=== PATIENT | male | born 1975 | race Caucasian/White ===

== ENCOUNTER 2022-04-16 19:49 | Emergency (ER) | payer BC ==
[2022-04-16 20:25] VITALS: O2SAT 98
[2022-04-16] MEDS ORDERED: TORAdol 30 mg Injection IM ONE (20:33)
[2022-04-16] MEDS ORDERED: TORAdol 30 mg Injection ONE (20:40)
[2022-04-16 21:07] LABS: Appearance CLEAR (CLEAR); Bilirubin NEGATIVE (NEGATIVE); Dipstick done @ ? MAIN LAB; Glucose NEGATIVE (NEGATIVE); Ketones NEGATIVE (NEGATIVE); Nitrite NEGATIVE (NEGATIVE); Ph 8.5 (5-6); Protein,Urine Dip NEGATIVE (Negative); RBC NEGATIVE Ery/ul (0-5); Specific Gravity 1.015 (1.005-1.025); Urobilinogen 0.2 mg/dL (0-1)
[2022-04-16 21:08] LABS: Bacteria NONE SEEN /HPF (NEGATIVE); Mucus SLIGHT /HPF (NEGATIVE)
[2022-04-16 21:09] LABS: Urine Cultured Indicated? NO
--- NOTE | 2022-04-16 21:13 | ERPHSYRPT ---
- History of Present Illness Source: patient Exam Limitations: no limitations Patient Subjective Stated Complaint: pt states "I began to have back pain today at noon." Triage Nursing Assessment: pt ambulated into the er; pt is axo x4; c/o back pain; pt states 10/10 to lower; tenderness present lower; pt has limited ROM to back; vitals wnl Physician History: 46 yo wm w lumbar/L CVA pain since 12:00 today. Pain is sharp and 10 on scale. He denies injury. pain radiates to L buttock. Nothing seems to make the pain better or worse. He has never had this pain before. Pt denies dysuria/hematuria/fever. Timing/Duration: other (12:00 today) Method of Injury: other (Denies injury) Quality: sharp, stabbing Back Pain Location: lumbar spine, paraspinous muscles Back Pain Radiation: buttocks Severity of Pain-Max: severe Severity of Pain-Current: severe Modifying Factors: Improves With: nothing Associated Symptoms: lower back pain, No fever, No chills, No sweating, No urinary incontinence, No loss of bowel control, No constipation, No nausea, No vomiting, No problems urinating, No light-headedness, No dizziness, No numbness in legs/feet, No weakness, No sensory/motor loss, No tingling in legs/feet, No muscle spasms Previous symptoms: no prior history Allergies/Adverse Reactions: No Known Drug Allergies Allergy (Verified 04/16/22 20:02) Hx Tetanus, Diphtheria Vaccination/Date Given: No Hx Influenza Vaccination/Date Given: No Hx Pneumococcal Vaccination/Date Given: No Travel Risk - International Travel Have you traveled outside of the country in past 3 weeks: No - Coronavirus Screening Are you exhibiting any of the following symptoms?: No Close contact with a COVID-19 positive Pt in past 14-21 Days: No - Vaccine Status Have you recieved a Covid-19 vaccination: No - Review of Systems Constitutional: No Symptoms Eyes: No Symptoms Ears, Nose, & Throat: No Symptoms Respiratory: No Symptoms Cardiac: No Symptoms Abdominal/Gastrointestinal: No Symptoms Genitourinary Symptoms: No Symptoms Musculoskeletal: No Symptoms, Back Pain Skin: No Symptoms Neurological: No Symptoms Psychological: No Symptoms Endocrine: No Symptoms Hematologic/Lymphatic: No Symptoms Immunological/Allergic: No Symptoms - Past Medical History Pertinent Past Medical History: Yes Neurological History: No Pertinent History ENT History: No Pertinent History Cardiac History: No Pertinent History Respiratory History: No Pertinent History Endocrine Medical History: No Pertinent History Musculoskeletal History: Fractures GI Medical History: GERD History: No Pertinent History Psycho-Social History: Anxiety, Panic Disorder Male Reproductive Disorders: No Pertinent History - Past Surgical History Past Surgical History: Yes Neuro Surgical History: No Pertinent History Cardiac: No Pertinent History Respiratory: No Pertinent History Gastrointestinal: No Pertinent History Genitourinary: No Pertinent History Musculoskeletal: No Pertinent History Male Surgical History: No Pertinent History - Social History Smoking Status: Current every day smoker How long have you smoked: 20 years Exposure to second hand smoke: Yes Drug Use: marijuana Patient Lives Alone: No - Nursing Vital Signs Nursing Vital Signs: Initial Vital Signs Temperature 98.3 F 04/16/22 20:03 Pulse Rate 102 H 04/16/22 20:03 Respiratory Rate 24 04/16/22 20:03 Blood Pressure 114/79 04/16/22 20:03 O2 Sat by Pulse Oximetry 98 04/16/22 20:03 Pain Scale Pain Intensity [] 10 Pain Intensity 4 Tachy - Physical Exam General Appearance: no apparent distress (In pain) Eye Exam: PERRL/EOMI, eyes nml inspection Ears, Nose, Throat Exam: normal ENT inspection, TMs normal, pharynx normal, moist mucous membranes Neck Exam: normal inspection, non-tender, supple, full range of motion, No meningismus, No mass, No Brudzinski, No Kernig's, No carotid bruit Respiratory Exam: normal breath sounds, lungs clear, airway intact, No respiratory distress Cardiovascular Exam: tachycardia, capillary refill <2 sec, No murmur Gastrointestinal Exam: soft, normal bowel sounds, No tenderness Back Exam: normal inspection, No CVA tenderness, No vertebral tenderness Extremity Exam: normal inspection, normal range of motion, pelvis stable Neurologic Exam: alert, oriented x 3, cooperative, jewel staker II-XII nml as tested, normal mood/affect, sensation nml Skin Exam: normal color, warm, dry Lymphatic Exam: No adenopathy SpO2 Interpretation: normal SpO2: 98 O2 Delivery: Room Air - Course Nursing assessment & vital signs reviewed: Yes - CT Exams Abdomen/Pelvis CT Interpretation: Tele-radiologist Report (Dilated small bowel wo transition point/L renal calculus) Ordered Tests: Active Orders 24 hr Category Date Time Status ABDOMEN AND PELVIS W/0 CONTRAS [CT] Stat Exams 04/16/22 20:33 Taken UA W/RFX CULTURE Stat Lab 04/16/22 20:44 Completed Medication Summary Discontinued Medications Generic Name Dose Route Start Last Admin Trade Name Keli PRN Reason Stop Dose Admin Hydrocodone Bitart/Acetaminophen 2 tab 04/16/22 21:45 04/16/22 21:48 Hydrocodone/Apap 5/325 Mg Tablet PO 04/16/22 21:46 2 tab SENT HOME W/ PATIENT ONE Administration Hydrocodone Bitart/Acetaminophen Confirm 04/16/22 21:47 Hydrocodone/Apap 5/325 Mg Tablet Administered 04/16/22 21:48 Dose 2 tab .ROUTE .STK-MED ONE Ketorolac Tromethamine 30 mg 04/16/22 20:33 04/16/22 20:41 Ketorolac Tromethamine 30 Mg/Ml Inj IM 04/16/22 20:34 30 mg STAT ONE Administration Ketorolac Tromethamine Confirm 04/16/22 20:40 Ketorolac Tromethamine 30 Mg/Ml Inj Administered 04/16/22 20:41 Dose 30 mg .ROUTE .STK-MED ONE Lab/Rad Data: Laboratory Results 04/16/22 Range/Units 20:44 Urinalys Dipstick Clnc MAIN LAB Urine Color YELLOW (YELLOW) Urine Appearance CLEAR (CLEAR) Urine pH 8.5 (5-6) Ur Specific [place] 1.015 (1.005-1.025) POC Urine Protein Conf NEGATIVE (Negative) Urine Ketones NEGATIVE (NEGATIVE) Urine Nitrite NEGATIVE (NEGATIVE) Urine Bilirubin NEGATIVE (NEGATIVE) Urine Urobilinogen 0.2 (0-1) mg/dL Urine Leukocytes NEGATIVE (NEGATIVE) Urine WBC (Auto) NONE (0-5) /HPF Urine RBC (Auto) NONE (0-2) /HPF U Epithel Cells (Auto) NONE (FEW) /HPF Urine Bacteria (Auto) NONE SEEN (NEGATIVE) /HPF Urine RBC NEGATIVE (0-5) Neeraj/ul Urine Mucus (Auto) SLIGHT (NEGATIVE) /HPF Ur Culture Indicated? NO Urine Glucose NEGATIVE (NEGATIVE) mg/dL - Progress Progress: improved Progress Note: 04/16/22 21:41 30mg IM Toradol w marked improvement Counseled pt/family regarding: lab results, diagnosis, need for follow-up, rad results - Departure Departure Disposition: Home Clinical Impression: Lumbar pain Condition: Stable Critical Care Time: No Referrals: SUGAR RAE [Primary Care Provider] - Follow up/PCP as directed Instructions: Low Back Pain (DC), Sciatica (DC) Additional Instructions: Rest/Heat/Massage Norflex/Toradol as needed for pain Follow up with your family MD Return to ER for increasing pain or temperature greater than 100.5 Prescriptions: Orphenadrine Citrate 100 mg [Norflex 100 MG Tablet] 100 mg PO BIDPRN PRN #10 tab PRN Reason: Pain Ketorolac Trometh 10 mg Tab [TORAdol 10 MG TABLET] 10 mg PO TID PRN PRN #10 tablet PRN Reason: Pain
[2022-04-16 21:35] VITALS: BP 115/74; PULSE 94
[2022-04-16] MEDS ORDERED: NORCO 5/325 MG PO ONE (21:45)
[2022-04-16] MEDS ORDERED: NORCO 5/325 MG ONE (21:47)
--- NOTE | 2022-04-16 22:25 | XRAY ---
Indication: Left flank pain. Multiple contiguous axial images obtained through the abdomen and pelvis without contrast using renal stone protocol. Comparison: None Lung bases demonstrates dependent atelectasis and tiny right middle lobe calcified granulomas. Heart not enlarged. Left mid kidney demonstrates faint nephrocalcinosis and 4 mm cyst. No other renal calculus or evidence for obstructive uropathy in either system. Noncontrasted stomach and bowel loops appear nonobstructed. Previous appendectomy. Minimal sigmoid diverticulosis without diverticulitis. No free fluid/air. Remaining liver, gallbladder, pancreas, spleen, adrenal glands, kidneys, ureters, bladder, and aorta are unremarkable for noncontrast exam. Osseous structures intact. Impression: 1. Subtle left renal nonobstructing nephrocalcinosis and tiny cyst. 2. Sigmoid diverticulosis and old granulomatous disease. 3. Remaining CT abdomen/pelvis without contrast exam is negative. Comment: Preliminary interpretation made by [facility]. No critical discrepancy.
== END 2022-04-16 21:55 | disposition home or self-care (01) ==
LOC: ED 19:49
DX: M54.50 Low back pain, unspecified (principal); Z72.0 Tobacco use; Z28.310 Unvaccinated for COVID-19
CPT/HCPCS: 74176; 81015; 96372; 99283; J1885; A9270-GY